=== PATIENT | male | born 1955 | race Caucasian/White ===

== ENCOUNTER → 2017-05-27 | Outpatient (CLI) | payer MEDICARE, OTHER ==
[~2017-05-27] MED LIST: ARTIFICIAL TEAR15 M3; ASPIRIN EC81 M1 PO; AUGMENTIN875 MG PO; CALCIUM CITRATE1 T15 PO; CLEARLAX17 GM PO; DIASTAT2.5 MG/KIT RC; GENTLE LAXATIVE10 MG RC; KEPPRA1000 MG PO; LAMICTAL ODT100 MG PO; LEVOTHROID100 MC1 PO; LEVOTHYROXINE100 MCG PO; MIRALAX17 GM PO; NASAL SPRAY30 M3; OMEPRAZOLE20 M2 PO; PAROXETINE HCL10 MG PO; PAROXETINE PO; PERIDEX480 ML; ROBITUSSIN100 MG/51 PO; SENNA SYRUP PO; SENNA8.6 M1 PO; THERA TAB PO; VIT D PO; ZYRTEC10 M2 PO
== END | disposition home or self-care (01) ==
LOC: CRAD 09:46
DX: R13.10 Dysphagia, unspecified (principal)
CPT/HCPCS: 74230; 92611; G8996-GN; G8997-GN; G8998-GN